=== PATIENT | male | born 1985 | race Caucasian/White ===

== ENCOUNTER 2021-06-07 22:11 | Emergency (ER) | payer SELFPAY ==
[~2021-06-07] VITALS: Ht 177.8 cm; Wt 130.2 kg
[2021-06-07 22:28] VITALS: BP 147/94
--- NOTE | 2021-06-07 22:32 | NUR ---
PATIENT TO LOBBY
--- NOTE | 2021-06-07 22:33 | NUR ---
PT GIVEN URINE CUP FOR URINE COLLECTION.
--- NOTE | 2021-06-08 01:33 | NUR ---
CALLED FOR PT NO ANSWER
--- NOTE | 2021-06-08 01:49 | NUR ---
PATIENT LEFT WITHOUT BEING SEEN BY DR. STEVENSON. NO FURTHER CARE PROVIDED FOR PATIENT.
--- NOTE | 2021-06-08 01:49 | NUR ---
CALLED FOR PT NO ANSWER
== END 2021-06-08 01:49 | disposition left against medical advice (07) ==
LOC: MED 22:11
DX: M54.59 Other low back pain (principal); Z53.21 Procedure and treatment not carried out due to patient leaving prior to being seen by health care provider